=== PATIENT | male | born 1990 | race Caucasian/White ===

== ENCOUNTER → 2018-08-25 22:58 | Emergency (ER) | payer OTHER ==
--- NOTE | 2018-08-26 00:43 | ED ---
Palpitations / Dysrhythmia - HPI Summary HPI Summary: 27 year old male presents with complaints of intermittent, brief episodes of a "pins and needle" sensation to his left upper chest that occasionally radiates into his left shoulde and upper arm thorough the day today. States the episodes last approximately 2-3 seconds. No identifiable trigger. At approximately 2230 he states he then had a "cold, wet, fluttering" sensation in his left upper chest that lasted for several seconds which prompted him to seek evaluation. Denies fever, chills, dizziness, lightheadedness, neck pain, chest pain, shortness of breath, diaphoresis, nausea, vomiting, weakness, numbness, or tingling of extremity. Takes vyvanse and Adderall for ADHD but states has never had issues with these medication. Drinks 2 large cups of coffee per day. Denies alcohol or illicit drug use. - History of Current Complaint Chief Complaint: EDDysrhythmPalp Time Seen by Provider: 08/25/18 23:31 Hx Obtained From: Patient - Allergy/Home Medications Allergies/Adverse Reactions: Allergies Allergy/AdvReac Type Severity Reaction Status Date / Time No Known Allergies Allergy Verified 08/25/18 23:13 Home Medications: Home Medications Dextroamphetamine/Amphetamine [Adderall Xr 15 mg Capsule] 15 mg PO DAILY [History Confirmed 08/25/18] Vyvanse 50 mg PO DAILY 08/25/18 [History Confirmed 08/25/18] PMH/Surg Hx/FS Hx/Imm Hx Previously Healthy: Yes - Denies significant PMH Endocrine/Hematology History: Denies: Hx Thyroid Disease, Hx Anemia Cardiovascular History: Denies: Hx Syncope, Hx Valvular Heart Disease, Hx Supraventricular Ventricular Tachycardia - Surgical History Surgery Procedure, Year, and Place: Denies Infectious Disease History: No Infectious Disease History: Denies: Traveled Outside the [place] in Last 30 Days - Family History Known Family History: Positive: Non-Contributory Negative: Cardiac Disease, Hypertension, Diabetes - Social History Occupation: Student Lives: Dormitory/Roommates Alcohol Use: Occasionally Substance Use Type: Reports: None Smoking Status (MU): Light Every Day Tobacco Smoker Review of Systems Negative: Fever, Chills, Skin Diaphoresis Positive: Palpitations - See HPI. Negative: Chest Pain Negative: Shortness Of Breath, Cough Negative: Abdominal Pain, Vomiting, Diarrhea, Nausea Genitourinary: Negative Musculoskeletal: Negative Negative: Rash Neurological: Negative All Other Systems Reviewed And Are Negative: Yes Physical Exam - Summary Physical Exam Summary: GENERAL APPEARANCE: Well developed, well nourished, alert and cooperative, and appears to be in no acute distress. CARDIAC: Normal S1 and S2. No S3, S4 or murmurs. Rhythm is regular. There is no peripheral edema, cyanosis or pallor. Extremities are warm and well perfused. Capillary refill is less than 2 seconds. Peripheral pulses intact. LUNGS: Clear to auscultation without rales, rhonchi, wheezing or diminished breath sounds. ABDOMEN: Positive bowel sounds. Soft, nondistended, nontender. No guarding or rebound. No masses or hepatosplenomegally. MUSKULOSKELETAL: ROM intact to all extremities. No joint erythema or tenderness. Normal muscular development. Normal gait. SKIN: Skin normal color, texture and turgor with no lesions or eruptions. Triage Information Reviewed: Yes Vital Signs On Initial Exam: Initial Vitals Temp Pulse Resp BP Pulse Ox 98.6 F 80 16 167/112 99 08/25/18 23:05 08/25/18 23:05 08/25/18 23:05 08/25/18 23:05 08/25/18 23:05 Vital Signs Reviewed: Yes Diagnostics - Vital Signs Vital Signs Temp Pulse Resp BP Pulse Ox 08/25/18 23:05 98.6 F 80 16 167/112 99 - Laboratory Lab Statement: Any lab studies that have been ordered have been reviewed, and results considered in the medical decision making process. - EKG No standard instances Cardiac Rate: NL - Rate 73 EKG Rhythm: Sinus Rhythm ST Segment: Normal Ectopy: None Summary of EKG Findings: NSR at a rate of 73 without ectopy, LINDSEY, or T-wave abnormalities. There is an RSR pattern in V1 and V2 that is likley a normal variant considering the patients age. Course/Dx - Course Course Of Treatment: 27 year old male presents with complaints of intermittent, brief episodes of a "pins and needle" sensation to his left upper chest that occasionally radiates into his left shoulde and upper arm thorough the day today. States the episodes last approximately 2-3 seconds. No identifiable trigger. At approximately 2230 he states he then had a "cold, wet, fluttering" sensation in his left upper chest that lasted for several seconds which prompted him to seek evaluation. Denies fever, chills, dizziness, lightheadedness, neck pain, chest pain, shortness of breath, diaphoresis, nausea , vomiting, weakness, numbness, or tingling of extremity. Takes vyvanse and Adderall for ADHD but states has never had issues with these medication. Drinks 2 large cups of coffee per day. Denies alcohol or illicit drug use. Afebrile. VSS. Exam was overall unremarkable. 12 lead EKG showed NSR at a rate of 73 without ectopy, LINDSEY, or T-wave abnormalities. There is an RSR pattern in V1 and V2 that is likley a normal variant considering the patients age. Discussed findings with patient and explained that I could not fully rule out a cardiac origin for his symptoms since he was assymptomatic at the time of the EKG. He declined any further testing as this time. He is to follow up in the [facility] or the [facility] within 3-5 for re- evaluation. Anticipatory guidance and warning symptoms reviewed with patient. Verbalizes understanding and agrees with POC. - Diagnoses Differential Diagnosis/HQI/PQRI: Positive: Medication Induced, Panic Disorder, Paroxymal SVT, Other - hyperthyroid, anemia Provider Diagnoses: Heart palpitations Discharge - Sign-Out/Discharge Documenting (check all that apply): Patient Departure Patient Received Moderate/Deep Sedation with Procedure: No - Discharge Plan Condition: Stable Disposition: HOME Patient Education Materials: Heart Palpitations (ED) Referrals: [facility] [Outside] Elif Kumar NP [Primary Care Provider] - Additional Instructions: Your EKG in the emergency room tonight was normal. I cannot say for sure the exact cause of your symptoms and you have declined lab work to assess for potential causes at this time. Follow with either the [facility] [place][Note 2] or with the [facility] within 3-5 days for a recheck of your symptoms. Return to the emergency room if you have the sensation of your heart racing or skipping beats that lasts for more than 10 minutes, you become weak or dizzy, lose consciousness, have chest pain, shortness of breath, or any worsening of symptoms. - Billing Disposition and Condition Condition: STABLE Disposition: Home
[2018-08-26 00:52] VITALS: BP 122/83
== END | disposition home or self-care (01) ==
LOC: ED 22:58
DX: R00.2 Palpitations (principal); R07.9 Chest pain, unspecified; F17.210 Nicotine dependence, cigarettes, uncomplicated
CPT/HCPCS: 93005; 99282